=== PATIENT | female | born 1980 | race Caucasian/White ===

== ENCOUNTER 2023-02-26 10:59 | Emergency (ER) | payer MEDICAID | END 2023-02-26 12:00 | disposition home or self-care (01) | LOC: JP.ED 10:59 | DX: K08.89 Other specified disorders of teeth and supporting structures (principal) | CPT/HCPCS: 99283 ==

== ENCOUNTER 2023-03-25 15:23 | Emergency (ER) | payer MEDICAID | END 2023-03-25 17:30 | disposition left against medical advice (07) | LOC: JP.ED 15:23 | DX: Z53.21 Procedure and treatment not carried out due to patient leaving prior to being seen by health care provider (principal) ==

== ENCOUNTER 2023-05-09 17:46 | Emergency (ER) | payer MEDICAID | END 2023-05-09 18:48 | disposition home or self-care (01) | LOC: JP.ED 17:46 | DX: S93.401A Sprain of unspecified ligament of right ankle, initial encounter (principal); Z86.16 Personal history of COVID-19; Z90.49 Acquired absence of other specified parts of digestive tract; X50.0XXA Overexertion from strenuous movement or load, initial encounter | CPT/HCPCS: 99283 ==

== ENCOUNTER 2024-03-23 12:00 | Emergency (ER) | payer MEDICAID ==
[2024-03-23] MEDS: Albuterol 0.083% 2.5 MG/3 ML Neb Soln NEB ONE (12:31)
== END 2024-03-23 12:42 | disposition home or self-care (01) ==
LOC: JP.ED 12:00
DX: B34.9 Viral infection, unspecified (principal); F17.200 Nicotine dependence, unspecified, uncomplicated; Z86.16 Personal history of COVID-19; Z90.49 Acquired absence of other specified parts of digestive tract; Z79.899 Other long term (current) drug therapy
CPT/HCPCS: 87428-QW; 94640; 99283; 99285

== ENCOUNTER 2024-04-28 16:13 | Emergency (ER) | payer MEDICAID ==
[2024-04-28 17:20] LABS: BASOPHILS ABSOLUTE AUTO 0.04 K/uL (0.00-0.10); BASOPHILS PERCENT AUTO 0.5 % (0.1-1.3); EOSINOPHILS ABSOLUTE AUTO 0.12 K/uL (0.00-0.40); EOSINOPHILS PERCENT AUTO 1.6 % (0.0-5.4); HEMATOCRIT 39.3 % (34.3-46.0); HEMOGLOBIN 13.8 g/dL (11.2-15.5); IMMATURE GRAN PERCENT AUTO 0.1 % (0.0-0.7); LYMPHOCYTES ABSOLUTE AUTO 2.71 K/uL (0.8-3.3); LYMPHOCYTES PERCENT AUTO 36.4 % (11.4-47.7); MEAN CORPUSCULAR HEMOGLOBIN 32.2 pg (31.6-35.5); MEAN CORPUSCULAR HGB CONC 35.1 g/dL (31.6-35.5); MEAN CORPUSCULAR VOLUME 91.8 fL (81.4-99.0); MONOCYTES ABSOLUTE AUTO 0.33 K/uL (0.20-0.90); MONOCYTES PERCENT AUTO 4.4 % (3.3-12.6); NEUTROPHILS ABSOLUTE AUTO 4.24 K/uL (1.0-7.6); PLATELET COUNT,PLT 285 K/uL (130-375); RED BLOOD CELL COUNT 4.28 M/uL (3.77-5.24); WHITE BLOOD CELL COUNT,WBC 7.5 K/uL (3.2-11.0)
[2024-04-28 17:21] LABS: IMMATURE GRAN ABSOLUTE AUTO 0.01 K/uL (0.00-0.23)
[2024-04-28 17:42] LABS: A/G RATIO 1.1 (1.2-2.2); ALANINE AMINOTRANSFERASE,ALT 23 U/L (12-78); ALBUMIN 3.8 g/dL (3.4-5.0); ALKALINE PHOSPHATASE 43 U/L (46-116); ASPARTATE AMNIOTRANSFERASE,AST 20 U/L (15-37); BILIRUBIN TOTAL 0.3 mg/dL (0.2-1.0); BLOOD UREA NITROGEN,BUN 8 mg/dL (7-18); C-REACTIVE PROTEIN <0.50 mg/dL (<0.50); CARBON DIOXIDE,CO2 24 mmol/L (21-32); CHLORIDE,CL 102 mmol/L (100-108); CREATININE 0.9 mg/dL (0.6-1.0); EST CRCL DRUG DOSING (CG) 84.23 mL/min; ESTIMATED GFR 81 mL/min (>60); GLUCOSE RANDOM 123 mg/dL (74-106); POTASSIUM,K 3.6 mmol/L (3.6-5.2); PROTEIN TOTAL,TP 7.4 g/dL (6.4-8.2); SODIUM,NA 137 mmol/L (140-148)
[2024-04-28 17:45] LABS: ANION GAP 14.6 mmol/L (5.0-14.0)
== END 2024-04-28 18:12 | disposition home or self-care (01) ==
LOC: JP.ED 16:13
DX: M62.08 Separation of muscle (nontraumatic), other site (principal); F17.210 Nicotine dependence, cigarettes, uncomplicated; Z90.49 Acquired absence of other specified parts of digestive tract; Z79.899 Other long term (current) drug therapy
CPT/HCPCS: 36415; 80053; 83605; 85025; 86140; 99284